=== PATIENT | female | born 1965 | race Caucasian/White ===

== ENCOUNTER → 2024-07-18 10:18 | Outpatient (REF) | payer OTHER, SELFPAY | LOC: HWWDC 10:18 | PROVIDERS: ATTENDING PHYSICIAN Nurse Practitioner Adult Health; FAMILY PHYSICIAN Family Medicine | DX: Z12.31 Encounter for screening mammogram for malignant neoplasm of breast (principal) | CPT/HCPCS: 77063; 77067 ==

== ENCOUNTER → 2025-02-11 08:56 | Outpatient (REF) | payer OTHER, SELFPAY | LOC: RAD 08:56 | PROVIDERS: ATTENDING PHYSICIAN Family Medicine | DX: Z78.0 Asymptomatic menopausal state (principal) | CPT/HCPCS: 77080 ==